=== PATIENT | female | born 1990 | race American Indian/Alaskan Native ===

== ENCOUNTER 2017-09-07 16:10 | Outpatient (CLI) | payer MEDICAID ==
[2017-09-07] MEDS ORDERED: LACTATED RINGERS 500 ML IV ONE (16:19)
[2017-09-07 16:29] VITALS: BP 114/70
[2017-09-07] MEDS ORDERED: NORMOSOL-R PH 7.4 1,000 ML IV ONE (16:35)
[2017-09-07 19:53] LABS: Bacteria,Urine 4+ /HPF (Negative); Bilirubin,Urine NEG (Negative); Blood,Urine SM (Negative); Color,Urine Amber (Yellow); Mucus,Urine 3+ /HPF
[2017-09-07 19:54] LABS: WBC,Urine > 182.0 /HPF (0.0-6.0)
== END 2017-09-07 19:03 | disposition home or self-care (01) ==
LOC: TRG 16:10
PROVIDERS: ATTEND Obstetrics & Gynecology
DX: O47.03 False labor before 37 completed weeks of gestation, third trimester (principal); Z3A.29 29 weeks gestation of pregnancy
CPT/HCPCS: 59025; 81001; 96360; 96361